=== PATIENT | male | born 1975 | race Caucasian/White ===

== ENCOUNTER 2019-07-03 22:41 | Emergency (ER) | payer BC ==
[2019-07-03] MEDS ORDERED: HYDROCODONE/ACETAMINOPHEN 5-325 MG TABLET PO ONE (23:27)
--- NOTE | 2019-07-03 23:30 | ER Document Report ---
ED Wound - General Chief Complaint: Wound Infection Stated Complaint: RIGHT EAR PROBLEM Time Seen by Provider: 07/03/19 23:02 - Related Data Allergies/Adverse Reactions: No Known Allergies Allergy (Unverified 07/03/19 22:50) Past Medical History - Social History Smoking Status: Current Every Day Smoker Patient has suicidal ideation: No Patient has homicidal ideation: No Physical Exam - Vital signs Vitals: Temp Pulse Resp BP Pulse Ox 98.5 F 84 16 172/91 H 100 07/03/19 22:47 07/03/19 22:47 07/03/19 22:47 07/03/19 22:47 07/03/19 22:47 Course - Vital Signs Vital signs: Temp Pulse Resp BP Pulse Ox 98.5 F 84 16 172/91 H 100 07/03/19 22:47 07/03/19 22:47 07/03/19 22:47 07/03/19 22:47 07/03/19 22:47
--- NOTE | 2019-07-03 23:33 | ER Document Report ---
ED ENT - General Chief Complaint: Wound Infection Stated Complaint: RIGHT EAR PROBLEM Time Seen by Provider: 07/03/19 23:02 Primary Care Provider: CARLOZ AMEZQUITA DO [ASSOCIATE] - 07/06/19 Notes: Patient is a 43 year old male with a history of psoriasis who presents with right ear swelling. He states that he was picking at this ear this morning and throughout the day developed swelling to his right ear. States he tried to squeeze the area to get pus out but nothing came out. Denies any other medical history. Denies diabetes. He has not seen his PCP for this issue. Denies fever, body aches, or chills. - Related Data Allergies/Adverse Reactions: No Known Allergies Allergy (Unverified 07/03/19 22:50) Past Medical History - Social History Smoking Status: Current Every Day Smoker Family History: Reviewed & Not Pertinent Patient has suicidal ideation: No Patient has homicidal ideation: No Review of Systems - Review of Systems Notes: REVIEW OF SYSTEMS: CONSTITUTIONAL : Denies recent illness. Denies recent unintentional weight loss. Denies fever, chills, or sweats. EENT: Denies eye, throat, or mouth pain, discharge, or symptoms. Denies nasal or sinus congestion. See HPI. CARDIOVASCULAR: Denies chest pain. RESPIRATORY: Denies shortness of breath, cough, congestion, difficulty breathing, or wheezing. GASTROINTESTINAL: Denies nausea, vomiting, and diarrhea. Denies abdominal pain. Denies constipation. GENITOURINARY: Denies difficulty urinating, burning, blood in urine, urgency or frequency. MUSCULOSKELETAL: Denies neck and back pain. Denies joint pain or swelling. SKIN: Denies rash, itchiness, or lesions HEMATOLOGIC : Denies easy bruising or bleeding. LYMPHATIC: Denies swollen, painful, enlarged glands. NEUROLOGICAL: Denies no numbness or tingling denies weakness. Denies headache. Denies altered mental status. Denies alteration in speech. PSYCHIATRIC: Denies stress, anxiety, alteration in sleep patterns, or de pression. All other systems reviewed and negative. Physical Exam - Vital signs Vitals: Temp Pulse Resp BP Pulse Ox 98.5 F 84 16 172/91 H 100 07/03/19 22:47 07/03/19 22:47 07/03/19 22:47 07/03/19 22:47 07/03/19 22:47 - Notes Notes: PHYSICAL EXAMINATION: GENERAL: Appears well, healthy, well-nourished, no acute distress. HEAD: Normocephalic, atraumatic. EYES: PERRL, conjunctiva normal, all extraocular movements intact, sclera nonicteric ENT: Moist mucous membranes. Swelling noted to pinna of right ear. NECK: Supple, no noticeable swelling, redness, rash. Normal range of motion. LUNGS: Equal breath sounds bilaterally and clear to auscultation. No wheezes rales or rhonchi. CARDIOVASCULAR: S1-S2, regular rate, regular rhythm. Radial pulses 2+, normal. ABDOMEN: Normoactive bowel sounds. Soft, nontender, no guarding, no rebound tenderness, and no masses palpated. EXTREMITIES: Normal strength and range of motion, no pitting or edema. No cya nosis. NEUROLOGICAL: Moves all extremities upon command. Strength 5/5 in all extremities. PSYCH: Normal mood, normal affect. SKIN: Warm, dry. No rash, lesions, ulcerations noted. Normal skin turgor. Course - Re-evaluation Re-evalutation: 07/04/19 01:07 I attempted to drain the possible abcess, but only had blood drain from the area. I was able to drain primarily blood. I asked Dr. Andres to accompany me at bedside. I made an incision the patient's year where the swelling was at and two large clots came out of the area. I was able to decompress the patient's ear. A pressure dressing was placed in the area. Patient will follow-up with ENT in regards to this visit. He will be placed on antibiotics. Follow-up precautions were given. Verbal discharge instructions were given to the patient. They verbalized understanding. They are stable for discharge. - Vital Signs Vital signs: Temp Pulse Resp BP Pulse Ox 98.4 F 80 20 154/79 H 98 07/04/19 01:39 07/04/19 01:39 07/04/19 01:39 07/04/19 01:39 07/04/19 01:39 - Laboratory Result Diagrams: 07/03/19 23:49 07/03/19 23:49 Laboratory results interpreted by me: 07/03/19 23:49 Anion Gap 4 L Glucose 115 H Discharge - Discharge Clinical Impression: Swelling of right external ear Condition: Stable Disposition: HOME, SELF-CARE Instructions: Prophylactic Antibiotic ([facility]) Additional Instructions: Follow up with ENT. Keep wrap on. May re-wrap if needed. Take antibiotics. Prescriptions: Sulfamethoxazole/Trimethoprim [Bactrim Ds Tablet] 1 each PO BID 7 Days #14 tablet Forms: Return to Work Referrals: CARLOZ AMEZQUITA DO [ASSOCIATE] - 07/06/19
[2019-07-03 23:58] LABS: ABSOLUTE EOSINOPHILS # (AUTO) 0.2 10^3/uL (0.0-0.6); ABSOLUTE LYMPHOCYTES (AUTO) 1.9 10^3/uL (0.5-4.7); ABSOLUTE MONOCYTES (AUTO) 0.7 10^3/uL (0.1-1.4); ABSOLUTE NEUT (AUTO) 5.8 10^3/uL (1.7-8.2); BASOPHILS % (AUTO) 0.3 % (0-2); EOSINOPHILS % (AUTO) 2.5 % (0-6); HEMATOCRIT 44.4 % (37.9-51.0); HEMOGLOBIN 15.7 g/dL (13.5-17.0); LYMPHOCYTES % (AUTO) 21.5 % (13-45); MEAN CORPUSCULAR HEMOGLOBIN 32.3 pg (27.0-33.4); MEAN CORPUSCULAR HGB CONC 35.5 g/dL (32.0-36.0); MEAN CORPUSCULAR VOLUME 91 fl (80-97); MONOCYTES % (AUTO) 8.5 % (3-13); PLATELET COUNT 222 10^3/uL (150-450); RED BLOOD COUNT 4.87 10^6/uL (4.35-5.55); RED CELL DISTRIBUTION WIDTH 13.7 % (11.5-14.0); SEGMENTED NEUTROPHILS % (AUTO) 67.2 % (42-78); TOTAL CELLS COUNTED % (AUTO) 100 %; WHITE BLOOD COUNT 8.7 10^3/uL (4.0-10.5)
[2019-07-04] MEDS ORDERED: LIDOCAINE 1% INJ-PF (10 MG/ML) 30 ML SDV INJ ONE (00:10)
[2019-07-04 00:17] LABS: ALBUMIN 4.3 g/dL (3.5-5.0); ALKALINE PHOSPHATASE 53 U/L (38-126); ASPARTATE AMINO TRANSFERASE 20 U/L (17-59); BILIRUBIN,TOTAL 0.2 mg/dL (0.2-1.3); BLOOD UREA NITROGEN 16 mg/dL (7-20); CALCIUM 9.1 mg/dL (8.4-10.2); GLUCOSE 115 mg/dL (75-110); POTASSIUM 4.4 mmol/L (3.6-5.0); TOTAL PROTEIN 6.8 g/dL (6.3-8.2)
[2019-07-04 00:23] LABS: ANION GAP 4 (5-19); CARBON DIOXIDE 30 mmol/L (22-30); CHLORIDE 106 mmol/L (98-107)
[2019-07-04] MEDS ORDERED: SULFAMETHOXAZOLE/TRIMETHOPRIM 800-160 MG TABLET PO ONE (01:10)
[2019-07-04 01:40] VITALS: BP 154/79
== END 2019-07-04 01:38 | disposition home or self-care (01) ==
LOC: ER 22:41
DX: H93.8X1 Other specified disorders of right ear (principal)
CPT/HCPCS: 36415; 80053; 85025; 87070; 87075; 87205; 99283

== ENCOUNTER → 2019-12-09 | Outpatient (CLI) | payer BC ==
[2019-12-09 13:13] VITALS: BP 151/91
--- NOTE | 2019-12-09 13:13 | ER RDC ASSESSMENT REPORT ---
Intake - In the Last 14 days Have you traveled outside [place]?: No Have you been in close contact with someone CONFIRMED: Yes Worked in Healthcare?: No - Symptoms Subjective Fever([place] feverish): No Chills: No Muscule Aches: No Runny Nose: No Sore Throat: No Cough (New or worsening chronic cough): No Shortness of breath: No Nausea or Vomiting: No Headache: No Abdominal Pain: No Diarrhea(3 or more loose stools in last 24 hours): Yes - Do you have any of the following Chronic lung disease: Asthma or emphysema or COPD: No Cystic Fibrosis: No Diabetes: No High Blood Pressure: Yes Cardiovascular Disease: No Chronic Kidney Disease: No Chronic Liver Disease: No Chronic blood disorder like Sickle Cell Disease: No Weak immune system due to disease or medication: No Neurologic condition that limits movement: No Developmental delay - Moderate to Severe: No Morbid Obesity (>100 pounds over ideal weight): No - Objective Temperature: 97.7 F Pulse Rate: 86 Respiratory Rate: 16 Blood Pressure: 151/91 O2 Sat by Pulse Oximetry: 95 Objective: Given above, testing performed: covid General - General Stated Complaint: diarrhea Mode of Arrival: Ambulatory Information source: Patient - HPI Notes: 44-year-old male presents to [facility] clinic for COVID-19 testing. Patient states he did have exposure to coworker that has tested positive. Patient reports onset of symptoms 12/07/2019. While he has cough, runny nose, shortness of breath with exertion, and headache, he states the symptoms are all chronic for him and he has not had any change in the frequency or severity of the symptoms. Suspect undiagnosed COPD, patient continues to smoke at this time. Patient does report one new symptom of diarrhea onset 24 hours ago. - Related Data Allergies/Adverse Reactions: No Known Allergies Allergy (Unverified 07/03/19 22:50) Home Medications: Saurav inhibitor unspecified Past Medical History - General Information source: Patient - Social History Smoking Status: Current Every Day Smoker Cigarette use (# per day): Yes - 20 Smoking Education Provided: Yes Family History: Reviewed & Not Pertinent - Past Medical History Cardiac Medical History: Reports: Hx Hypertension Pulmonary Medical History: Reports: None EENT Medical History: Reports: None Neurological Medical History: Reports: None Endocrine Medical History: Reports: None Renal/ Medical History: Reports: None Malignancy Medical History: Reports None GI Medical History: Reports: None Musculoskeletal Medical History: Reports None Skin Medical History: Reports None Psychiatric Medical History: Reports: None Traumatic Medical History: Reports: None Infectious Medical History: Reports: None Physical Exam - General General appearance: Appears well, Alert In distress: None Notes: PHYSICAL EXAMINATION: GENERAL: Well-appearing and in no acute distress. HEAD: Atraumatic, normocephalic. EYES: sclera anicteric, conjunctiva are normal. ENT: nares patent. Moist mucous membranes. NECK: Normal range of motion, supple without lymphadenopathy. LUNGS: No increased work of breathing. Lung sounds CTAB and equal. No wheezes rales or rhonchi. HEART: Regular rate and rhythm without murmurs. ABDOMEN: Soft, nontender, normal bowel sounds, no guarding. EXTREMITIES: Normal range of motion, no pitting edema. No cyanosis. NEUROLOGICAL: A&O x 3. Normal speech. PSYCH: Normal mood, normal affect. SKIN: Warm, Dry, normal turgor, no rashes or lesions noted Patient Education/Counseling Counseling/Education: Patient presents with symptoms associated with possible Covid 19 infection. Patient does not have emergency worrying symptoms such as difficulty breathing, shortness of breath, chest pain, pressure, confusion or cyanosis. Patient appears suitable for discharge as vital signs are stable and patient is nontoxic in appearance. Good return precautions have been discussed with patient, patient verbalized understanding and is agreeable with discharge plan of care at this time. Guidance for worsening S/SX: As a person under investigation for Covid 19, the [place] department of Health and Human Services, division of public health advises you to adhere to the following guidance until your test results are reported to you. If your test result is positive, you will receive additional information from your provider and your local health department at that time. Remain at home until you are cleared by the health provider or public health authorities. Keep a log of visitors to your home, notify any visitors to your home of your isolation status. If you plan to move to a new address or leave the county, notify the local health department in your County. Call your doctor or seek care if you have an urgent medical need. Before seeking medical care, call ahead to get instructions from the provider before arriving at the medical office clinic or hospital. Notify them that you are being tested for the virus that causes Covid 19 so that arrangements can be made, as necessary, to prevent transmission to others in the healthcare setting. Next, notify the local health department in your county. If a medical emergency arises and you need to call 911, inform the first responders that you are being tested for the virus that causes Covid 19. Next, notify the local health department in your county. RDC Discharge - Discharge Clinical Impression: Encounter for screening laboratory testing for COVID-19 virus Condition: Good Disposition: Home; Selfcare
== END ==
LOC: RDC 12:18
PROVIDERS: ATTEND Registered Nurse
DX: Z20.828 Contact with and (suspected) exposure to other viral communicable diseases (principal); R05 Cough; R06.02 Shortness of breath; R19.7 Diarrhea, unspecified; R51 Headache; I10 Essential (primary) hypertension; R09.89 Other specified symptoms and signs involving the circulatory and respiratory systems; F17.210 Nicotine dependence, cigarettes, uncomplicated
CPT/HCPCS: U0003; C9803; 87635; 99201; 99211